=== PATIENT | male | born 1975 | race Hispanic/Latino ===

== ENCOUNTER 2017-04-05 11:50 | Day surgery (SDC) | payer SELFPAY ==
[~2017-04-05] VITALS: Ht 160 cm; Wt 90.7 kg
[~2017-04-05 11:50] MED LIST: AMOX/K CLAV875 M1 PO; BROMOCRIPTIN2.5 M1 PO; CEPHALEXIN500 MG PO; CIPROFLOXACIN; CIPROFLOXACN0.3 % AS; DIFLUCAN100 M1 PO; LIDOCAINE HCL 3% EX; LORATADINE10 M1 PO; PERCOCET 5/325M1 TAB PO
[2017-04-05 13:34] VITALS: BP 105/65
== END 2017-04-05 14:25 | disposition home or self-care (01) | DRG 395 ==
LOC: ENDO 11:50 → ORM 13:00 → ENDO 14:25
PROVIDERS: ATTEND Surgery
PROC: 0DJD8ZZ Inspection of Lower Intestinal Tract, Via Natural or Artificial Opening Endoscopic (ICD-10-PCS; principal; 2017-04-05)
DX: K60.2 Anal fissure, unspecified (principal); K64.8 Other hemorrhoids

== ENCOUNTER 2017-12-10 06:13 | Day surgery (SDC) | payer SELFPAY ==
[~2017-12-10] VITALS: Ht 162.6 cm; Wt 89.8 kg
[~2017-12-10 06:13] MED LIST changes: +EQ STOOL SOFTE100 MG; +FIBER SELECT GUMMIES; +HYDROXYZINE HCL25 M1 PO; +LISINOPRIL10 MG PO; +NEO/POLY/HC OP; +[UNRECOGNIZED DRUG - OTHER]
[2017-12-10 09:39] VITALS: BP 108/71
== END 2017-12-10 10:00 | disposition home or self-care (01) | DRG 349 ==
LOC: ORM 06:13
PROVIDERS: ATTEND Surgery
PROC: 0DBQ3ZZ Excision of Anus, Percutaneous Approach (ICD-10-PCS; principal; 2017-12-10)
DX: K60.3 Anal fistula (principal)

== ENCOUNTER 2021-03-01 12:16 | Emergency (ER) | payer OTHER ==
[2021-03-01] MEDS ORDERED: BROMOCRIPTINE2.5 MG PO (13:10)
[2021-03-01] MEDS ORDERED: [UNRECOGNIZED DRUG - OTHER] PO (13:11)
[2021-03-01] MEDS ORDERED: OXYCODO-APAP1 TA2 PO (13:13)
[2021-03-01] MEDS ORDERED: METHOCARBAMOL500 MG PO (13:14)
[2021-03-01] MEDS ORDERED: CETIRIZINE10 MG PO (13:14)
[2021-03-01 13:19] LABS: HEMATOCRIT 50.4 % (39.0-50.0); HEMOGLOBIN 16.3 g/dl (14.0-18.0); IMMATURE GRANULOCYTES 1.1 % (0.0-5.0); MEAN CELL VOLUME 91.5 fL CALC (80.0-100.0); MEAN CORPUSCULAR HGB 29.6 pG CALC (26.0-32.0); MEAN CORPUSCULAR HGB CONC 32.3 g/dL CAL (32.0-36.0); NEUT# 11.79 thou/uL (1.82-7.42); RED BLOOD COUNT 5.51 mill/uL (4.70-6.10); RED CELL DISTRI WIDTH 12.5 % (11.5-15.5)
[2021-03-01 13:27] LABS: ALKALINE PHOSPHATASE 95 u/l (38-126); ANION GAP 15 (6-22 (CALC)); BILIRUBIN, TOTAL 0.6 mg/dL (0.0-1.4); BUN 17 mg/dL (9-20); BUN/CREATININE RATIO 31 (12-20 (CALC)); CARBON DIOXIDE 24 mmol/l (22-30); CHLORIDE 102 mmol/l (95-108); CREATININE 0.5 mg/dL (0.7-1.3); GFR > 60 ML/MIN (>=60 (CALC)); GFR FOR AFR.AMER. > 60 ML/MIN (>=60 (CALC)); LIPASE 36 u/l (23-300); POTASSIUM 4.2 mmol/l (3.5-5.1); SGOT/AST 40 u/l (17-59); SODIUM 137 mmol/l (137-146); TOTAL PROTEIN 9.2 g/dL (6.3-8.2)
[2021-03-01 15:05] LABS: URINE BILIRUBIN - DIPSTICK NEGATIVE (NEGATIVE); URINE BLOOD DIPSTICK NEGATIVE (NEGATIVE); URINE COLOR YELLOW; URINE GLUCOSE - DIPSTICK NEGATIVE (NEGATIVE); URINE KETONE NEGATIVE (NEGATIVE); URINE LEUK ESTERASE NEGATIVE (NEGATIVE); URINE PH 5.5 (4.5-8.0); URINE PROTEIN - DIPSTICK NEGATIVE (NEG-TRACE); URINE UROBILINOGEN - DIPSTICK 0.2 E.U./dL (0.2)
[2021-03-01 15:07] LABS: URINE NITRITE - DIPSTICK NEGATIVE (Negative)
[2021-03-01] MEDS ORDERED: ONDANSETRON4 MG PO (15:34)
[2021-03-01 16:23] VITALS: BP 137/76
== END 2021-03-01 16:34 | disposition home or self-care (01) | DRG 556 ==
LOC: ED 12:16
PROVIDERS: Family Medicine
DX: M25.511 Pain in right shoulder (principal); M25.521 Pain in right elbow; R07.89 Other chest pain; R10.11 Right upper quadrant pain; R10.13 Epigastric pain; I10 Essential (primary) hypertension; W19.XXXA Unspecified fall, initial encounter; Y92.89 Other specified places as the place of occurrence of the external cause; Y99.0 Civilian activity done for income or pay; Z20.822 Contact with and (suspected) exposure to COVID-19
CPT/HCPCS: Q9967

== ENCOUNTER 2021-03-06 12:23 | Emergency (ER) | payer OTHER ==
[~2021-03-06 12:23] MED LIST changes: +BROMOCRIPTINE2.5 MG PO; +CETIRIZINE10 MG PO; +METHOCARBAMOL500 MG PO; +ONDANSETRON4 MG PO; +OXYCODO-APAP1 TA2 PO; +[UNRECOGNIZED DRUG - OTHER] PO
[2021-03-06 13:11] LABS: HEMOGLOBIN 17.2 g/dl (14.0-18.0); IMMATURE GRANULOCYTES 0.5 % (0.0-5.0); MEAN CELL VOLUME 88.7 fL CALC (80.0-100.0); MEAN CORPUSCULAR HGB 29.4 pG CALC (26.0-32.0); MEAN CORPUSCULAR HGB CONC 33.1 g/dL CAL (32.0-36.0); NEUT# 14.26 thou/uL (1.82-7.42); RED BLOOD COUNT 5.86 mill/uL (4.70-6.10); RED CELL DISTRI WIDTH 12.4 % (11.5-15.5)
[2021-03-06 13:27] LABS: ALBUMIN 5.5 g/dL (3.2-5.0); ALKALINE PHOSPHATASE 110 u/l (38-126); BUN 18 mg/dL (9-20); BUN/CREATININE RATIO 21 (12-20 (CALC)); CHLORIDE 104 mmol/l (95-108); CREATININE 0.9 mg/dL (0.7-1.3); GFR > 60 ML/MIN (>=60 (CALC)); GFR FOR AFR.AMER. > 60 ML/MIN (>=60 (CALC)); LIPASE 46 u/l (23-300); POTASSIUM 3.8 mmol/l (3.5-5.1); SGOT/AST 45 u/l (17-59); SODIUM 139 mmol/l (137-146); TOTAL PROTEIN 10.3 g/dL (6.3-8.2)
[2021-03-06 13:28] LABS: ANION GAP 20 (6-22 (CALC)); BILIRUBIN, TOTAL 0.9 mg/dL (0.0-1.4); CARBON DIOXIDE 19 mmol/l (22-30)
[2021-03-06 15:53] LABS: URINE BILIRUBIN - DIPSTICK NEGATIVE (NEGATIVE); URINE BLOOD DIPSTICK NEGATIVE (NEGATIVE); URINE COLOR YELLOW; URINE GLUCOSE - DIPSTICK NEGATIVE (NEGATIVE); URINE KETONE NEGATIVE (NEGATIVE); URINE LEUK ESTERASE NEGATIVE (NEGATIVE); URINE NITRITE - DIPSTICK NEGATIVE (Negative); URINE PROTEIN - DIPSTICK NEGATIVE (NEG-TRACE); URINE SPECIFIC GRAVITY <=1.005; URINE UROBILINOGEN - DIPSTICK 0.2 E.U./dL (0.2)
[2021-03-06 16:29] VITALS: BP 120/75
== END 2021-03-06 16:14 | disposition home or self-care (01) | DRG 392 ==
LOC: ED 12:23
PROVIDERS: Family Medicine
DX: K52.9 Noninfective gastroenteritis and colitis, unspecified (principal); S16.1XXA Strain of muscle, fascia and tendon at neck level, initial encounter; I10 Essential (primary) hypertension; X58.XXXA Exposure to other specified factors, initial encounter
CPT/HCPCS: Q9967

== ENCOUNTER 2021-09-08 06:58 | Emergency (ER) | payer SELFPAY ==
[~2021-09-08] VITALS: Ht 162.6 cm; Wt 109.0 kg
[2021-09-08 08:34] LABS: HEMATOCRIT 47.4 % (39.0-50.0); HEMOGLOBIN 15.6 g/dl (14.0-18.0); IMMATURE GRANULOCYTES 0.3 % (0.0-5.0); MEAN CELL VOLUME 90.8 fL CALC (80.0-100.0); MEAN CORPUSCULAR HGB 29.9 pG CALC (26.0-32.0); MEAN CORPUSCULAR HGB CONC 32.9 g/dL CAL (32.0-36.0); NEUT# 4.65 thou/uL (1.82-7.42); RED BLOOD COUNT 5.22 mill/uL (4.70-6.10); RED CELL DISTRI WIDTH 12.7 % (11.5-15.5)
[2021-09-08 08:56] LABS: ALBUMIN 4.5 g/dL (3.2-5.0); ALKALINE PHOSPHATASE 89 u/l (38-126); BILIRUBIN, TOTAL 0.6 mg/dL (0.0-1.4); BUN 11 mg/dL (9-20); BUN/CREATININE RATIO 19 (12-20 (CALC)); CHLORIDE 102 mmol/l (95-108); CREATININE 0.6 mg/dL (0.7-1.3); GFR > 60 ML/MIN (>=60 (CALC)); GFR FOR AFR.AMER. > 60 ML/MIN (>=60 (CALC)); POTASSIUM 3.8 mmol/l (3.5-5.1); SGOT/AST 29 u/l (17-59); SODIUM 139 mmol/l (137-146)
[2021-09-08 09:01] LABS: ANION GAP 12 (6-22 (CALC)); CARBON DIOXIDE 29 mmol/l (22-30); TOTAL PROTEIN 8.1 g/dL (6.3-8.2)
[2021-09-08 09:07] LABS: MYOGLOBIN 26 ng/mL (0 - 121)
[2021-09-08 09:17] LABS: URINE BILIRUBIN - DIPSTICK NEGATIVE (NEGATIVE); URINE BLOOD DIPSTICK NEGATIVE (NEGATIVE); URINE COLOR YELLOW; URINE GLUCOSE - DIPSTICK NEGATIVE (NEGATIVE); URINE KETONE NEGATIVE (NEGATIVE); URINE LEUK ESTERASE NEGATIVE (NEGATIVE); URINE PROTEIN - DIPSTICK NEGATIVE (NEG-TRACE); URINE UROBILINOGEN - DIPSTICK 0.2 E.U./dL (0.2)
[2021-09-08 09:22] LABS: URINE NITRITE - DIPSTICK NEGATIVE (Negative)
[2021-09-08] MEDS ORDERED: ONDANSETRON4 MG PO (09:35)
[2021-09-08] MEDS ORDERED: MECLIZINE25 MG PO (09:35)
[2021-09-08 14:12] VITALS: BP 125/86
== END 2021-09-08 10:10 | disposition home or self-care (01) | DRG 149 ==
LOC: ED 06:58
PROVIDERS: Emergency Medicine
DX: R42 Dizziness and giddiness (principal); I10 Essential (primary) hypertension

== ENCOUNTER 2022-11-24 14:58 | Emergency (ER) | payer SELFPAY ==
[~2022-11-24] VITALS: Ht 162.6 cm; Wt 109.0 kg
[~2022-11-24 14:58] MED LIST changes: +MECLIZINE25 MG PO
[2022-11-24] MEDS ORDERED: NAPROXEN500 MG PO (18:57)
[2022-11-24] MEDS ORDERED: KEFLEX500 MG PO (18:57)
[2022-11-24 19:48] VITALS: BP 124/80
== END 2022-11-24 20:00 | disposition home or self-care (01) | DRG 605 ==
LOC: ED 14:58
DX: S61.411A Laceration without foreign body of right hand, initial encounter (principal); W45.8XXA Other foreign body or object entering through skin, initial encounter; W20.8XXA Other cause of strike by thrown, projected or falling object, initial encounter; S60.221A Contusion of right hand, initial encounter

== ENCOUNTER 2022-12-06 12:08 | Emergency (ER) | payer SELFPAY ==
[~2022-12-06] VITALS: Ht 162.6 cm; Wt 86.2 kg
[~2022-12-06 12:08] MED LIST changes: +KEFLEX500 MG PO; +NAPROXEN500 MG PO
[2022-12-06 12:36] VITALS: BP 130/87
[2022-12-06 12:45] VITALS: BP 118/67
[2022-12-06 13:01] VITALS: BP 128/69
[2022-12-06] MEDS ORDERED: MOTRIN800 MG PO (13:22)
[2022-12-06] MEDS ORDERED: BACTRIM DS1 TAB PO (13:22)
[2022-12-06 14:03] VITALS: BP 118/67
== END 2022-12-06 13:36 | disposition home or self-care (01) | DRG 951 ==
LOC: ED 12:08
DX: Z48.02 Encounter for removal of sutures (principal); R60.9 Edema, unspecified

== ENCOUNTER 2022-12-19 08:14 | Emergency (ER) | payer SELFPAY ==
[~2022-12-19] VITALS: Ht 162.6 cm; Wt 111.0 kg
[~2022-12-19 08:14] MED LIST changes: +BACTRIM DS1 TAB PO; +MOTRIN800 MG PO
[2022-12-19 08:52] VITALS: BP 125/85
[2022-12-19 09:00] VITALS: BP 108/68
[2022-12-19] MEDS ORDERED: OMEPRAZOLE DR40 MG (09:13)
[2022-12-19] MEDS ORDERED: LISINOPRIL10 MG PO (09:14)
[2022-12-19] MEDS ORDERED: BACTRIM DS1 TAB PO (09:25)
[2022-12-19] MEDS ORDERED: MUPIROCIN2 % EX (09:25)
[2022-12-19] MEDS ORDERED: OMNI-PAC300 MG PO (09:25)
[2022-12-19 09:31] VITALS: BP 125/85
== END 2022-12-19 09:46 | disposition home or self-care (01) | DRG 603 ==
LOC: ED 08:14
DX: L03.113 Cellulitis of right upper limb (principal); I10 Essential (primary) hypertension